=== PATIENT | male | born 1955 | race Caucasian/White ===

== ENCOUNTER → 2024-02-18 | Outpatient (CLI) | payer MEDICARE, SELFPAY ==
[2024-02-18 12:29] LABS: Absolute Lymphocyte Count 2.75 X10^3/uL (0.83-4.51); Absolute Neutrophil Count 4.2 X10^3/uL (2.0-7.7); Basophil# 0.11 X10^3/uL; Basophil% 1.3 % (0-1); Eosinophil# 0.69 X10^3/uL; Eosinophils% 8.2 % (0-5); Hematocrit 46.4 % (40-54); Hemoglobin 15.2 g/dL (13.0-16.5); Lymphocyte # 2.75 X10^3/ul (0.83-4.51); Lymphocyte % 32.6 % (19-41); Mean Corp Hgb Conc 32.8 g/dL (32-36); Mean Corpuscular Hgb 28.4 pg (27.0-32.0); Mean Corpuscular Volume 86.6 fL (80-94); Monocyte# 0.58 X10^3/uL; Monocyte% 6.9 % (0-10); NRBC Flagged by Analyzer 0 % (0-5); Neutrophil # 4.24 X10^3/uL (2.7-7.7); Neutrophil % 50.3 % (47-70); Platelet Count 175 K/mm3 (150-450); RBC Distribution Width CV 13.2 % (11.6-14.6); RBC Distribution Width SD 41.3 fl (35.1-43.9); Red Blood Count 5.36 M/mm3 (4.6-6.2); White Blood Count 8.4 K/mm3 (4.4-11.0)
[2024-02-18 13:30] LABS: AST(SGOT) 39 U/L (15-37); Alanine Aminotransfer ALT/SGPT 49 U/L (16-61); Albumin, Serum 3.5 g/dL (3.2-5.0); Alkaline Phosphatase 81 U/L (45-117); Anion Gap 7 (5-15); BUN 13 mg/dL (7-18); BUN/Creat Ratio 12.7 RATIO (10-20); Calcium,Total 8.9 mg/dL (8.5-10.1); Chloride 105 mmol/L (98-107); Cholesterol 93 mg/dL (200); Creatinine, Serum 1.02 mg/dL (0.70-1.30); EST Glomerular Filtration Rate 78 mL/min (>60); Est Glom Filt Rate - Afr Amer 94 mL/min (>60); Globulin 3.6 g/dL (2.2-4.2); Glucose 325 mg/dL (74-106); High Density Lipoprotein 27 mg/dL; PSA,Total - Annual Screen 0.62 ng/mL (0.00-4.00); Potassium 4.4 mmol/L (3.5-5.1); Protein, Total 7.1 g/dL (6.4-8.2); Sodium Level 134 mmol/L (136-145); Triglycerides 275 mg/dL; Very Low Density Lipoprotein 55 mg/dL (5-40)
== END | disposition home or self-care (01) ==
LOC: MFPLAB 10:27
PROVIDERS: PCP Family Medicine; Visit Provider Family Medicine
DX: I10 Essential (primary) hypertension (principal); E78.5 Hyperlipidemia, unspecified; Z12.5 Encounter for screening for malignant neoplasm of prostate
CPT/HCPCS: 36415; 80053; 80061; 84153; 84443; 85025; G0103

== ENCOUNTER 2024-03-30 15:59 | Outpatient (RCR) | payer SELFPAY | END 2024-04-25 23:59 | LOC: NS 15:59 | PROVIDERS: PCP Family Medicine | DX: Z71.3 Dietary counseling and surveillance (principal) ==

== ENCOUNTER → 2024-05-12 | Outpatient (CLI) | payer MEDICARE, SELFPAY ==
--- NOTE | 2024-05-12 12:49 | ECHOCS_ITS ---
Reason For Study: CAD/ASHD Procedure This was a 2D Doppler, Color Flow transthoracic echocardiogram. The study was technically difficult. Contrast injection was performed. Exam performed in department. Left Ventricle Normal LV size. Moderate concentric left ventricular hypertrophy. Left ventricular systolic function is normal. The left ventricular ejection fraction is 65 %. Stage 1 diastolic dysfunction. No regional wall motion abnormalities noted. Right Ventricle Normal RV size. Normal systolic function. Atria Normal left atrium. Normal right atrium. Mitral Valve Normal mitral valve. Tricuspid Valve Normal tricuspid valve. Aortic Valve Trisinus/trileaflet aortic valve. Mild focal aortic valve calcification. Pulmonic Valve Normal pulmonic valve. Great Vessels Mildly dilated aortic root. The pulmonary artery is normal size. Inferior vena cava collapse with respiration. Pericardium/Pleural No pericardial effusion. Medication 22 gauge I.V. with prn adaptor inserted into right arm. Diluted definity 3ml given slow IV push to enhance endocardial definition. MMode/2D Measurements & Calculations LVIDd: 3.7 cm IVSd: 1.6 cm LVOT diam: 2.0 cm LVIDs: 2.5 cm LVPWd: 1.4 cm RVDd: 3.6 cm FS: 31.0 % LVOT area: 3.0 cm2 Ao root diam: 4.1 cm asc Aorta Diam: 4.1 cm LAV(MOD-bp): 40.8 ml LAV(MOD-bp) Indexed: 17.9 ml/m2 LAV(MOD-sp2): 48.0 ml LAV(MOD-sp4): 30.5 ml SV(MOD-sp4): 67.7 ml SV(sp4-el): 71.1 ml LVAd ap4: 33.1 cm2 LVLd ap4: 8.7 cm SI(MOD-sp4): 29.7 ml/m2 EDV(MOD-sp4): 101.8 ml EDV(sp4-el): 106.2 ml LVAs ap4: 16.6 cm2 LVLs ap4: 6.6 cm ESV(MOD-sp4): 34.2 ml ESV(sp4-el): 35.1 ml EF(MOD-sp4): 66.5 % EF(sp4-el): 67.0 % Ao sinus diam: 3.[address] Junction: 3.0 cm LA A4 area: 14.6 cm2 LA dimension(2D): 3.6 cm TAPSE: 1.9 cm RA A4 area: 11.0 cm2 Time Measurements MV dec time: 0.31 sec Doppler Measurements & Calculations MV E max holger: 76.8 cm/sec Lat Peak E' Holger: 8.5 cm/sec Med Peak E' Holger: 6.2 cm/sec MV A max holger: 127.2 cm/sec E/E' lat: 9.0 E/E' med: 12.4 MV E/A: 0.60 MV V2 max: 129.2 cm/sec MV P1/2t max hogler: 84.0 cm/sec Ao V2 max: 232.4 cm/sec MV max P.7 mmHg MV P1/2t: 79.8 msec Ao max P.7 mmHg MV V2 mean: 78.3 cm/sec MV dec slope: 308.2 cm/sec2 Ao V2 mean: 151.9 cm/sec MV mean P.8 mmHg Ao mean P.9 mmHg MV V2 VTI: 23.3 cm MVA(P1/2t): 2.8 cm2 Ao V2 VTI: 41.4 cm MVA(VTI): 2.1 cm2 AV (velocity ratio): 0.39 KEY(I,D): 1.2 cm2 KEY(V,D): 1.2 cm2 LV V1 max: 91.3 cm/sec SV(LVOT): 48.9 ml PA V2 max: 98.5 cm/sec LV V1 max P.3 mmHg PA V2 mean: 69.4 cm/sec LV V1 mean P.8 mmHg LV V1 mean: 63.3 cm/sec LV V1 VTI: 16.3 cm ECHO/Echo Complete W/ Contrast Interpretation Summary Normal LV size. Moderate concentric left ventricular hypertrophy. Left ventricular systolic function is normal. The left ventricular ejection fraction is 65 %. Stage 1 diastolic dysfunction. Contrast injection was performed. Ordering Physician: Walt Costa Referring Physician: Walt Costa Performed By: Brodwolf, Matthias, RCS
== END | disposition home or self-care (01) ==
PROVIDERS: PCP Family Medicine; Referring Provider Internal Medicine Cardiovascular Disease; Visit Provider Internal Medicine Cardiovascular Disease
DX: I48.0 Paroxysmal atrial fibrillation (principal); I25.10 Atherosclerotic heart disease of native coronary artery without angina pectoris
CPT/HCPCS: 93306; Q9957; A4216; C8929

== ENCOUNTER 2024-06-19 05:29 | Day surgery (SDC) | payer MEDICARE, SELFPAY ==
--- NOTE | 2024-06-16 21:24 | PAT.ANESEVAL ---
Pre-Assessment Diagnosis/Proposed Procedure Planned Operative Procedure(s): COLONOSCOPY Anesthesia History Anesthesia History - bulk pallet builder: Anesthesia History - bulk pallet builder Hx Hospitalization No 06/16/24 10:06 Any Problems With Anesthesia Yes: PONV 06/16/24 10:06 Cholinesterase deficiency No 06/16/24 10:06 You/Your Family Experience No 06/16/24 10:06 fever (hyperthermia) with Relationship Recent Exposure to Contagious Disease Does patient have nerve No 06/16/24 10:06 stimulator Patient instructed to have device shut off --Does patient have Pacemaker or ICD? When Was Last Pacemaker Check QUESTION #4 FULL TEXT: You/Your Family Experience fever (hyperthermia) with Anesthesia Last Oral Intake Last Oral intake: Last Oral Intake NPO since Meds taken in AM with sips of water? Meds patient instructed to take am of surgery PONV PONV - bulk pallet builder: PONV - bulk pallet builder Female No 06/16/24 10:06 HX of Motion Sickness No 06/16/24 10:06 HX of N/V After Surgery Yes 06/16/24 10:06 Non-Smoker Yes 06/16/24 10:06 Duration of Surgery greater No 06/16/24 10:06 than 60 minutes Number of Risk Factors 2 06/16/24 10:06 PONV Score Moderate Risk 06/16/24 10:06 Height & Weight Height & Weight: Anesthesia: Height & Weight Height 5 ft 10 in 05/14/24 11:19 Respiratory Assessment Respiratory Assessment - bulk pallet builder: Respiratory Tract Infection Hx - bulk pallet builder Hx Respiratory Tract Infection No 06/16/24 10:06 STOP Sleep Apnea STOP Sleep Apnea - bulk pallet builder: STOP Sleep Apnea - bulk pallet builder Hx Hypertension Yes 06/16/24 10:06 Hx Sleep Apnea No 06/16/24 10:06 CPAP BIPAP Do you snore loudly (louder No 06/16/24 10:06 than talking or can be heard Do you often feel tired/ No 06/16/24 10:06 fatigued/ sleepy during daytime? Has anyone observed you stop No 06/16/24 10:06 breathing during sleep? STOP Results Negative 06/16/24 10:06 QUESTION #5 FULL TEXT : Do you snore loudly (louder than talking or can be heard through closed doors)? 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 Specify any problems Hx of Preganancy in last 3 N/A 06/16/24 10:06 Months Nurse Filling Out Transfusion [email or web address] 06/16/24 10:06 & Questions: Date: 06/16/24 06/16/24 10:06 Time: 10:08 06/16/24 10:06 Patient unable to answer at this time (ie. confused, unrespo /Reproduction History /Reproductive History - bulk pallet builder: /Reproductive Hx- bulk pallet builder Hx Now Gestational Age (in weeks): EDC: Hx Hx Para Hx Section SAB PFSH Medical History Retinal detachment Paroxysmal atrial fibrillation Hypertension Type 2 diabetes mellitus Gout Ulcerative colitis GERD (gastroesophageal reflux disease) Hyperlipidemia Coronary artery disease Personal history of colonic polyps History of colon cancer Home Medications ?Medication ?Instructions ?Recorded ?Last Taken ?Type allopurinol 100 mg tablet 100 mg PO QDAY 03/16/24 Unknown History aspirin 81 mg tablet,delayed 81 mg PO QDAY 03/16/24 06/13/24 History release (Adult Low Dose Aspirin) dapagliflozin propanediol 5 mg 5 mg PO QDAY 03/16/24 06/13/24 History tablet (Farxiga) famotidine 20 mg tablet 20 mg PO QDAY 03/16/24 Unknown History lactobacillus combination no.9 4 4,000 mmu cells PO QDAY 03/16/24 Unknown History billion cell capsule (Adult 50 Plus Probiotic) losartan 100 mg tablet 100 mg PO QDAY 03/16/24 Unknown History meloxicam 15 mg tablet 15 mg PO QDAY 03/16/24 Unknown History mesalamine 1.2 gram tablet,delayed 1.2 g PO QDAY 03/16/24 Unknown History release metformin 1,000 mg tablet 1,000 mg PO QDAY 03/16/24 Unknown History metoprolol tartrate 50 mg tablet 50 mg PO QDAY 03/16/24 Unknown History multivitamin 1 tab PO QAM 03/16/24 Unknown History rosuvastatin 20 mg tablet 20 mg PO QDAY 03/16/24 Unknown History semaglutide 0.25 mg or 0.5 mg (2 0.25 mg subcut QWEEK 03/16/24 06/06/24 History mg/3 mL) subcutaneous pen injector (Ozempic) Allergy/AdvReac Type Severity Reaction Status Date / Time adhesive tape Allergy Rash Verified 06/16/24 10:04 morphine Allergy HALLUCINATI Verified 06/16/24 10:04 ONS shellfish derived Allergy Swelling Verified 06/16/24 10:04 Family History Mother Breast cancer Father Alzheimer's disease Surgical History History of eye surgery History of coronary artery stent placement History of cardiac catheterization History of carpal tunnel surgery History of ventral hernia repair History of fusion of cervical spine History of partial colectomy History of total right knee replacement Hx of appendectomy Hx of colonoscopy Social History household members: spouse current occupational status: retired Smoking Status: Never smoker alcohol intake: current alcohol intake frequency: holidays/special occasions only substance use type: does not use caffeine: Yes Audit: Pertinent Findings Pertinent Findings EKG Perinent findings: April 15, 2024. Sinus rhythm Echo (EF%) pertinent findings: May 12, 2024. Ejection fraction 65%. No aortic stenosis noted. Heart catheterization pertinent findings: February 2023. Drug-eluting stent to the right coronary artery. Consult pertinent findings: April 15, 2024. Dr. Costa. 1. Paroxysmal atrial fibrillation. Patient has a history of atrial fibrillation. Current EKG is normal sinus rhythm. No longer on oral anticoagulants. An event monitor performed August 22, 2021 showed no evidence of atrial fibrillation. 2. Ixzzyrcekhkv-zixl-skbbiteotm. Continue same meds. 3. Coronary artery disease patient denies recurrence of dyspnea on exertion after his drug-eluting stent placement. 4. Aortic valve stenosis. Patient's murmur is consistent with mild to moderate aortic stenosis. Repeat echo to assess. See above. Recommendation Anesthesia Recommendation Anesthesia recommendation: OPTIMIZED for anesthesia
[2024-06-19] VITALS (17 sets, daily range): BP systolic 53–124; BP diastolic 39–90; PULSE 76–114; RESP 16–18; TEMP 36.4–36.6; O2SAT 89–102; BMI 33.5
--- NOTE | 2024-06-19 | COLBX_PTH ---
PATIENT: MARIA DE JESUS AMBROCIO LOC: EN U#:[id number] AGE/SX: 69/M ROOM: RE06/19/[address]: Dr. Nimesh Zurita DO : 1955 BED: DIS: 06/19/2024 SPEC #: [id number] RECD: 06/19/24 13:47 STATUS: CHRISTOPHER REWhitney #: [id number] TIM: 06/19/24 00:[address]: Nimesh Zurita DEPT: SURGICAL PATHOLOGY RECD BY: Matt Foote ENTERED: 06/19/24 13:48 SP TYPE: COLON BX OTHR DR: Alexia Paez MD Tissues: A - COLON BIOPSY B - COLON BIOPSY C - Sigmoid colon biopsy D - Rectum, NOS Procedures: Surgery Specimen Level IV HEADER OPERATION: Colonoscopy PRE-OP DIAGNOSIS: Ulcerative colitis, history of colon cancer TISSUE SUBMITTED: A- Right side of colon biopsy, B- Left side colon biopsy, C- Sigmoid colon biopsy,D- Rectal biopsy MICROSCOPIC DIAGNOSIS A. Right side of colon, biopsy: Fragments of colonic mucosa with minimal glandular distortion. Negative for active inflammation. B. Left side of colon, biopsy: Fragments of colonic mucosa with minimal glandular distortion. Negative for active inflammation. C. Sigmoid colon, biopsy: Fragments of colonic mucosa with minimal glandular distortion. Negative for active inflammation. D. Rectal biopsy: Fragments of colonic mucosa with minimal glandular distortion. Negative for active inflammation. 06/22/2024 COMMENT Correlation with clinical, endoscopic findings and appropriate follow up are necessary. MICROSCOPIC DESCRIPTION Slides are reviewed. GROSS DESCRIPTION A. Received in fixative is one container labeled with the patient's name and designated Right side of colon biopsy. The specimen consists of multiple irregular fragments of light peña soft tissue that in aggregate measure 1.8 x 0.2 x 0.1 cm. The specimen is totally submitted in one cassette. B. Received in fixative is one container labeled with the patient's name and designated Left side colon biopsy. The specimen consists of multiple irregular fragments of light peña soft tissue that in aggregate measure 1.5 x 0.7 x 0.1 cm. The specimen is totally submitted in one cassette. C. Received in fixative is one container labeled with the patient's name and designated Sigmoid colon biopsy. The specimen consists of multiple irregular fragments of light peña soft tissue that in aggregate measure 1.4 x 0.3 x 0.1 cm. The specimen is totally submitted in one cassette. D. Received in fixative is one container labeled with the patient's name and designated Rectal biopsy. The specimen consists of multiple irregular fragments of light peña soft tissue that in aggregate measure 1 x 0.5 x 0.1 cm. The specimen is totally submitted in one cassette. 06/19/2024 TC:5 CPT:00996y1
[2024-06-19 06:29] LABS: Bedside Glucose 165 mg/dL (74-106)
--- NOTE | 2024-06-19 06:33 | PCM.PRE.AN2 ---
ASA Classification* ASA Classification ASA Classification: 3 Assessment & Plan Anesthesia* Anesthesia Assessment Anesthesia Assessment: Discussed sedation and/or anesthesia options, risks, benefits, and alternatives with patient/parents/legal guardian/POA. Questions invited. The patient/parents/legal guardian/POA seems to understand and agrees to proceed with anesthesia plan. Reviewed the physical assessment, medical history, allergy history and patient home medications list prior to surgery/procedure/anesthetic and documented any changes. Performed airway and anesthesia risk assessments. Anesthesia Type Anesthesia Type: MAC History Source History Obtained from:: Patient and Chart Anesthesia Focused Assessment* Temperature: 97.8 F Pulse Rate: 114 Blood Pressure: 124/90 Respiratory Rate: 18 Pulse Ox: 92 Oxygen Delivery Method: Room Air Airway Assessment Mouth opens: >3 cm Mallampati Score: IV Teeth Condition: Caps/Crowns (Patient has a couple crowns. They are tight.) Neck Range of motion (ROM): Limited ROM (Slight decrease in extension secondary to anterior cervical fusion.) Focused Labs Anesthesia Preop lab: CBC WBC 8.4 K/mm3 (4.4-11.0) 02/18/24 10:28 RBC 5.36 M/mm3 (4.6-6.2) 02/18/24 10:28 Hgb 15.2 g/dL (13.0-16.5) 02/18/24 10:28 Hct 46.4 % (40-54) 02/18/24 10:28 Plt Count 175 K/mm3 (150-450) 02/18/24 10:28 CHEMISTRY Potassium 4.4 mmol/L (3.5-5.1) 02/18/24 10:28 Sodium 134 mmol/L (136-145) L 02/18/24 10:28 BUN 13 mg/dL (7-18) 02/18/24 10:28 Creatinine 1.02 mg/dL (0.70-1.30) 02/18/24 10:28 Glucose 325 mg/dL (74-106) H 02/18/24 10:28 POC Glucose 165 mg/dL (74-106) H 06/19/24 06:08 TSH 1.340 uIU/mL (0.358-3.740) 02/18/24 10:28 COAG Pre-Assessment Diagnosis/Proposed Procedure Planned Operative Procedure(s): COLONOSCOPY Anesthesia History Anesthesia History - administrative court justice: Anesthesia History - administrative court justice Hx Hospitalization No 06/16/24 10:06 Any Problems With Anesthesia Yes: PONV narrow airway?patient has had to be fiberoptically intubated in the past. 06/16/24 10:06 Cholinesterase deficiency No 06/16/24 10:06 You/Your Family Experience No 06/16/24 10:06 fever (hyperthermia) with Relationship Recent Exposure to Contagious No 06/19/24 06:07 Disease Does patient have nerve No 06/16/24 10:06 stimulator Patient instructed to have device shut off --Does patient have Pacemaker No 06/19/24 06:07 or ICD? When Was Last Pacemaker Check QUESTION #4 FULL TEXT: You/Your Family Experience fever (hyperthermia) with Anesthesia Last Oral Intake Last Oral intake: Last Oral Intake NPO since 04:00 06/19/24 06:07 Meds taken in AM with sips of Yes 06/19/24 06:07 water? Meds patient instructed to see medlist 06/19/24 06:07 take am of surgery Any additional information?: Yes NPO since: 04:00 (Patient finished prep at 4 AM.) Meds taken in AM with sips of water?: Yes PONV PONV - administrative court justice: PONV - administrative court justice Female No 06/16/24 10:06 HX of Motion Sickness No 06/16/24 10:06 HX of N/V After Surgery Yes 06/16/24 10:06 Non-Smoker Yes 06/16/24 10:06 Duration of Surgery greater No 06/16/24 10:06 than 60 minutes Number of Risk Factors 2 06/16/24 10:06 PONV Score Moderate Risk 06/16/24 10:06 Height & Weight Height & Weight: Anesthesia: Height & Weight Height 5 ft 10 in 06/19/24 06:07 Weight: 106 kg 06/19/24 06:07 Body Mass Index (BMI) 33.5 06/19/24 06:07 Respiratory Assessment Respiratory Assessment - administrative court justice: Respiratory Tract Infection Hx - administrative court justice Hx Respiratory Tract Infection No 06/16/24 10:06 STOP Sleep Apnea STOP Sleep Apnea - administrative court justice: STOP Sleep Apnea - administrative court justice Hx Hypertension Yes 06/16/24 10:06 Hx Sleep Apnea No 06/16/24 10:06 CPAP BIPAP Do you snore loudly (louder No 06/16/24 10:06 than talking or can be heard Do you often feel tired/ No 06/16/24 10:06 fatigued/ sleepy during daytime? Has anyone observed you stop No 06/16/24 10:06 breathing during sleep? STOP Results Negative 06/16/24 10:06 QUESTION #5 FULL TEXT : Do you snore loudly (louder than talking or can be heard through closed doors)? 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 Specify any problems Hx of Preganancy in last 3 N/A 06/16/24 10:06 Months Nurse Filling Out Transfusion [email or web address] 06/16/24 10:06 & Questions: Date: 06/16/24 06/16/24 10:06 Time: 10:08 06/16/24 10:06 Patient unable to answer at this time (ie. confused, unrespo /Reproduction History /Reproductive History - administrative court justice: /Reproductive Hx- administrative court justice Hx Now Gestational Age (in weeks): EDC: Hx Hx Para Hx Section [facility] Medical History Retinal detachment Paroxysmal atrial fibrillation Hypertension Type 2 diabetes mellitus Gout Ulcerative colitis GERD (gastroesophageal reflux disease) Hyperlipidemia Coronary artery disease Personal history of colonic polyps History of colon cancer Home Medications ?Medication ?Instructions ?Recorded ?Last Taken ?Type allopurinol 100 mg tablet 100 mg PO QDAY 03/16/24 Unknown History aspirin 81 mg tablet,delayed 81 mg PO QDAY 03/16/24 06/15/24 History release (Adult Low Dose Aspirin) dapagliflozin propanediol 5 mg 5 mg PO QDAY 03/16/24 06/15/24 History tablet (Farxiga) famotidine 20 mg tablet 20 mg PO QDAY 03/16/24 06/19/24 History lactobacillus combination no.9 4 4,000 mmu cells PO QDAY 03/16/24 Unknown History billion cell capsule (Adult 50 Plus Probiotic) losartan 100 mg tablet 100 mg PO QDAY 03/16/24 06/19/24 History meloxicam 15 mg tablet 15 mg PO QDAY 03/16/24 Unknown History mesalamine 1.2 gram tablet,delayed 1.2 g PO QDAY 03/16/24 Unknown History release metformin 1,000 mg tablet 1,000 mg PO QDAY 03/16/24 06/17/24 History metoprolol tartrate 50 mg tablet 50 mg PO QDAY 03/16/24 06/19/24 History multivitamin 1 tab PO QAM 03/16/24 Unknown History rosuvastatin 20 mg tablet 20 mg PO QDAY 03/16/24 Unknown History semaglutide 0.25 mg or 0.5 mg (2 0.25 mg subcut QWEEK 03/16/24 06/09/24 History mg/3 mL) subcutaneous pen injector (Ozempic) Allergy/AdvReac Type Severity Reaction Status Date / Time adhesive tape Allergy Rash Verified 06/19/24 06:05 morphine Allergy HALLUCINATI Verified 06/19/24 06:05 ONS shellfish derived Allergy Swelling Verified 06/19/24 06:05 Family History Mother Breast cancer Father Alzheimer's disease Surgical History History of eye surgery History of coronary artery stent placement History of cardiac catheterization History of carpal tunnel surgery History of ventral hernia repair History of fusion of cervical spine History of partial colectomy History of total right knee replacement Hx of appendectomy Hx of colonoscopy Social History household members: spouse current occupational status: retired Smoking Status: Never smoker alcohol intake: current alcohol intake frequency: holidays/special occasions only substance use type: does not use caffeine: Yes Review of Systems (Anesthesia) ROS Narrative System reviewed and no additional complaints, except as documented.
--- NOTE | 2024-06-19 07:09 | PCM.HP.STD ---
HPI - General General Date of Admission: 06/19/24 Date of Service: 06/19/24 Chief Complaint: h/o colon cancer HPI Narrative MARIA DE JESUS AMBROCIO, is a 69 M who presents for surveillance colonoscopy. Pt has a PMHx of colon cancer, UC, DM, and CAD. He recently moved to this area from [place] and wanted to establish his care. He was diagnosed with UC about 20 years ago after having issues w/ diarrhea. He has been treated with mesalamine every since and feels it is well controlled. He also had colon caner in 2005. He is unsure what kind or where in his bowel but he did undergo resection of his colon. Following this he had complications and ended up with a temporary colostomy. He is having no GI symptoms at this time but it is time for his screening colonoscopy. He denies abdominal pain, n/v, heartburn, constipation , diarrhea or blood in his stool. [facility] Medical History Retinal detachment Paroxysmal atrial fibrillation Hypertension Type 2 diabetes mellitus Gout Ulcerative colitis GERD (gastroesophageal reflux disease) Hyperlipidemia Coronary artery disease Personal history of colonic polyps History of colon cancer Home Medications ?Medication ?Instructions ?Recorded ?Last Taken ?Type allopurinol 100 mg tablet 100 mg PO QDAY 03/16/24 Unknown History aspirin 81 mg tablet,delayed 81 mg PO QDAY 03/16/24 06/15/24 History release (Adult Low Dose Aspirin) dapagliflozin propanediol 5 mg 5 mg PO QDAY 03/16/24 06/15/24 History tablet (Farxiga) famotidine 20 mg tablet 20 mg PO QDAY 03/16/24 06/19/24 History lactobacillus combination no.9 4 4,000 mmu cells PO QDAY 03/16/24 Unknown History billion cell capsule (Adult 50 Plus Probiotic) losartan 100 mg tablet 100 mg PO QDAY 03/16/24 06/19/24 History meloxicam 15 mg tablet 15 mg PO QDAY 03/16/24 Unknown History mesalamine 1.2 gram tablet,delayed 1.2 g PO QDAY 03/16/24 Unknown History release metformin 1,000 mg tablet 1,000 mg PO QDAY 03/16/24 06/17/24 History metoprolol tartrate 50 mg tablet 50 mg PO QDAY 03/16/24 06/19/24 History multivitamin 1 tab PO QAM 03/16/24 Unknown History rosuvastatin 20 mg tablet 20 mg PO QDAY 03/16/24 Unknown History semaglutide 0.25 mg or 0.5 mg (2 0.25 mg subcut QWEEK 03/16/24 06/09/24 History mg/3 mL) subcutaneous pen injector (Ozempic) Allergy/AdvReac Type Severity Reaction Status Date / Time adhesive tape Allergy Rash Verified 06/19/24 06:05 morphine Allergy HALLUCINATI Verified 06/19/24 06:05 ONS shellfish derived Allergy Swelling Verified 06/19/24 06:05 Family History Mother Breast cancer Father Alzheimer's disease Surgical History History of eye surgery History of coronary artery stent placement History of cardiac catheterization History of carpal tunnel surgery History of ventral hernia repair History of fusion of cervical spine History of partial colectomy History of total right knee replacement Hx of appendectomy Hx of colonoscopy Social History household members: spouse current occupational status: retired Smoking Status: Never smoker alcohol intake: current alcohol intake frequency: holidays/special occasions only substance use type: does not use caffeine: Yes ROS Constitutional Constitutional: Denies fatigue, fever(s), poor appetite, weight gain or weight loss Gastrointestinal Gastrointestinal: Denies belching, bloating, change in bowel habits, change in stool character, chewing difficulty, coffee ground emesis, constipation, cramping, diarrhea, dyspepsia, dysphagia, early satiety, excessive flatus, fecal incontinence, heartburn, hematemesis, hematochezia, hemorrhoids, loose stools, melena, nausea, odynophagia, rectal bleeding, tenesmus, vomiting or weight changes Vital Signs Vital Signs Vital Signs: 06/19/24 06:07 06/19/24 06:43 Temperature 97.8 F 97.8 F Temperature Source Temporal Pulse Rate 114 H 114 H Respiratory Rate 18 18 Blood Pressure 124/90 H 124/90 H Blood Pressure Mean 101 Blood Pressure Source Monitor Blood Pressure Position Semi-Fowlers Blood Pressure Location Right Arm Pulse Ox 92 92 Oxygen Delivery Method Room Air Room Air Weight Weight: 233 lb 11.04 oz Body Mass Index (BMI) 33.5 Physical Exam Const alert, oriented x3, no apparent distress and healthy appearing General Appearance: cooperative GI normal to inspection, nondistended, normoactive bowel sounds, soft to palpation, non-tender and non-distended Percussion: normal to percussion Rectal Exam: deferred Results Lab / Micro Data Labs: Laboratory Results - last 24 hr 06/19/24 06:08: POC Glucose 165 H Assessment & Plan Assessment/Plan (1) History of colon cancer: PLAN: Assessment and Plan Assessment and Plan (1) Ulcerative colitis: Status: Acute Plan: This is a 68 yo male pt with PMHx of colon cancer and UC here today for establishment and for screening colonoscopy. Pt recently moved to [place] and needed to find a new GI. He had colon cancer in 2005 and is s/p partial colon resection. He is due for his screening colonoscopy. He will be scheduled for this. He has had UC for 20 years and is symptom free with mesalamine. He will continue mesalamine. He will f/u in 6 months. -Colonopscy -Continue mesalamine -f/u in 6 months (2) History of colon cancer: Status: Acute (2) Ulcerative colitis:
--- NOTE | 2024-06-19 07:35 | OP.COLON_ITS ---
Patient Name: Michael Garcia Procedure Date: 06/19/2024 7:19 AM Date of : 1955 Age: 69 Procedure: Colonoscopy Indications: Disease activity assessment of left-sided chronic ulcerative colitis Providers: Nimesh Zurita DO Referring MD: Alexia Paez Md Medicines: Monitored Anesthesia Care Patient Profile: This is a 69 year old male. Refer to note in patient chart for documentation of history and physical. Last Colonoscopy: more than 3 years ago. Complications: No immediate complications. Procedure: Pre-Anesthesia Assessment: - Prior to the procedure, a History and Physical was performed, and patient medications and allergies were reviewed. The patient is competent. The risks and benefits of the procedure and the sedation options and risks were discussed with the patient. All questions were answered and informed consent was obtained. Patient identification and proposed procedure were verified by the physician in the pre-procedure area. Mental Status Examination: alert and oriented. Airway Examination: normal oropharyngeal airway and neck mobility. Respiratory Examination: clear to auscultation. CV Examination: normal. Prophylactic Antibiotics: The patient does not require prophylactic antibiotics. Prior Anticoagulants: The patient has taken no anticoagulant or antiplatelet agents except for NSAID medication. ASA Grade Assessment: II - A patient with mild systemic disease. After reviewing the risks and benefits, the patient was deemed in satisfactory condition to undergo the procedure. The anesthesia plan was to use monitored anesthesia care (MAC). Immediately prior to administration of medications, the patient was re-assessed for adequacy to receive sedatives. The heart rate, respiratory rate, oxygen saturations, blood pressure, adequacy of pulmonary ventilation, and response to care were monitored throughout the procedure. The physical status of the patient was re-assessed after the procedure. After I obtained informed consent, the scope was passed under direct vision. Throughout the procedure, the patient's blood pressure, pulse, and oxygen saturations were monitored continuously. The Colonoscope was introduced through the anus and advanced to the cecum, identified by appendiceal orifice and ileocecal valve. The colonoscopy was performed without difficulty. The patient tolerated the procedure well. The quality of the bowel preparation was adequate. The ileocecal valve, appendiceal orifice, and rectum were photographed. Scope In: 7:21:48 AM Scope Withdrawal Time 0 hours 7 minutes 23 seconds Scope Out: 7:30:33 AM Total Procedure Duration Time 0 hours 8 minutes 45 seconds Findings: The perianal and digital rectal examinations were normal. There was evidence of a prior end-to-end colo-colonic anastomosis in the recto-sigmoid colon. This was patent and was characterized by healthy appearing mucosa. Inflammation was found in a continuous and circumferential pattern from the rectum to the sigmoid colon. This was graded as Dover Score 1 (mild, with erythema, decreased vascular pattern, mild friability), and when compared to the previous examination, the findings are in remission. Biopsies were taken with a cold forceps for histology. Verification of patient identification for the specimen was done. Estimated blood loss was minimal. The exam was otherwise without abnormality on direct and retroflexion views. Impression: - Patent end-to-end colo-colonic anastomosis, characterized by healthy appearing mucosa. - Mild (Dover Score 1) ulcerative colitis, in remission since the last examination. Biopsied. - The examination was otherwise normal on direct and retroflexion views. Recommendation: - Discharge patient to home. - Resume previous diet. - Continue present medications. - Await pathology results. - Repeat colonoscopy for surveillance based on pathology results. Procedure Code(s): --- Professional --- 41409, Colonoscopy, flexible; with biopsy, single or multiple CPT copyright 2021 [employer]. All rights reserved. The codes documented in this report are preliminary and upon manager merchandising review may be revised to meet current compliance requirements. Nimesh Zurita DO 06/19/2024 7:34:42 AM This report has been signed electronically. Number of Addenda: 0 Note Initiated On: 06/19/2024 7:19 AM
--- NOTE | 2024-06-19 07:35 | OP.CCLET_ITS ---
06/19/2024 Alexia Paez Md Re : Colonoscopy procedure for Michael Maguirer Philippe This procedure was performed on Wednesday, June 19, 2024. My impressions and recommendations are as follows: Impressions : - Patent end-to-end colo-colonic anastomosis, characterized by healthy appearing mucosa. - Mild (Dover Score 1) ulcerative colitis, in remission since the last examination. Biopsied. - The examination was otherwise normal on direct and retroflexion views. Recommendations : - Discharge patient to home. - Resume previous diet. - Continue present medications. - Await pathology results. - Repeat colonoscopy for surveillance based on pathology results. My findings are described in the full procedure note, which is enclosed. If I can be of further assistance, please feel free to contact me at . Sincerely, Nimesh Zurita, 06/19/2024 7:34:42 AM This report has been signed electronically.
--- NOTE | 2024-06-19 07:44 | PCM.POST.ANE ---
Anesthesia: Postop Eval I Current Vital Signs Temperature: 97.5 F Pulse Rate: 99 Blood Pressure: 53/39 Respiratory Rate: 16 Pulse Ox: 94 Oxygen Delivery Method: Room Air Assessment Airway patent: Yes Spontaneous unlabored respirations: Yes Mental status: Asleep nausea: No Vomiting: No Anesthesia Complication: Yes Anesthesia Complication Comment:: hypotension in PACU Fluid Hydration Crystalloid volume administer (ml): 40 Total IV fluid infused: 40 Progress Note Anesthesia document: Postop Eval 1 completed: Yes
--- NOTE | 2024-06-19 10:36 | PCM.POSTANE2 ---
Anesthesia Postop Eval I Sum Postop Eval Completion status Anesthesia document: Postop Eval 1 completed: Yes Anesthesia Postop Eval I Summary Anesthesia Postop Eval I Summary: Anesthesia Postop Eval I: Assessment Summary Airway patent Yes 06/19/24 07:45 [email or web address] Spontaneous unlabored Yes 06/19/24 07:45 [email or web address] respirations Mental status Asleep 06/19/24 07:45 [email or web address] nausea No 06/19/24 07:45 [email or web address] Vomiting No 06/19/24 07:45 [email or web address] Anesthesia Postop Eval I: Fluid Summary Crystalloid volume administer 40 06/19/24 07:45 [email or web address] (ml) Colloids volume administered ( ml) Blood Product volume administered (ml) Total IV fluid infused 40 06/19/24 07:45 [email or web address] Anesthesia Postop Eval I: Summary Notes Anesthesia Complication Yes 06/19/24 07:45 [email or web address] Anesthesia Complication hypotension in 06/19/24 07:45 [email or web address] Comment: PACU Post-operative progress note Anesthesia: Postop Eval II Evaluation Mental status: Awake Pain Level: 0 nausea: No Vomiting: No Complications Anesthesia Complication: No
== END 2024-06-19 09:33 | disposition home or self-care (01) ==
LOC: EN 05:30 → AC 05:31
PROVIDERS: PCP Family Medicine; Referring Provider Family Medicine; Visit Provider Internal Medicine Gastroenterology
PROC: 0DJD8ZZ Inspection of Lower Intestinal Tract, Via Natural or Artificial Opening Endoscopic (ICD-10-PCS; CPT 45378; principal; 2024-06-19 06:55)
DX: Z12.11 Encounter for screening for malignant neoplasm of colon (principal); K51.30 Ulcerative (chronic) rectosigmoiditis without complications; E11.9 Type 2 diabetes mellitus without complications; E78.5 Hyperlipidemia, unspecified; K21.9 Gastro-esophageal reflux disease without esophagitis; I10 Essential (primary) hypertension; I25.10 Atherosclerotic heart disease of native coronary artery without angina pectoris; Z98.0 Intestinal bypass and anastomosis status; Z90.49 Acquired absence of other specified parts of digestive tract; Z95.5 Presence of coronary angioplasty implant and graft; Z79.1 Long term (current) use of non-steroidal anti-inflammatories (NSAID); Z85.038 Personal history of other malignant neoplasm of large intestine; Z79.84 Long term (current) use of oral hypoglycemic drugs; Z79.85 Long-term (current) use of injectable non-insulin antidiabetic drugs; Z79.899 Other long term (current) drug therapy
CPT/HCPCS: 45380; 82962; 88305; A4216; J2405

== ENCOUNTER 2024-06-24 15:00 | Outpatient (RCR) | payer MEDICARE, SELFPAY ==
--- NOTE | 2024-05-29 13:08 | HP.PTEVAL_ITS ---
Patient's Visit Information Visit Information Visit Information: MARIA DE JESUS AMBROCIO is a 69 year old M referred to Physical Therapy by TOBIAS Corbett with a diagnosis of R shoulder and hip pain. Date of Evaluation: 05/29/24 Physical Therapist: Ruben Bryan, PT, ATC Visit Plan Frequency: 1x/Week Duration: 2-3 weeks Plan: R shoulder- rotator cuff strengthening and scap stab ex's R hip- IT band and piriformis stretching, core strengthening Subjective Subjective: Pt reports his R shoulder and hip became sore approximately 1 1/2 months ago. Pt notes his pain had an insidious onset in nature. Pt reports he was placed on a steroid a while ago which has really helped. Pt notes his pain is now minimal compared to previously. Pt is R hand dominant. Pt reports he ruptured his R biceps tendon one year ago which was never repaired. Pt reports his R hip is sore on the lateral aspect superior to the greater trochanter of the R hip. Pt denies any prior Hx of trauma to the R hip. 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 Pt denies any tingling or numbness with R UE/LE extremities. Pt denies sleep difficulty at this time although notes he takes advil for pain. Pt reports significant pain with overhead reaching prior to receiving his steroids. Pt has not had any diagnostic tests at this time. R shoulder pain ranges from 1/10 pain while at rest to 10/10 pain at worst. R hip pain is 1/10 while sitting here at rest, 10/10 at worst. Pt reports his R hip would really hurt anytime he had to lift his R LE. Pain R shoulder: Pain Intensity (Out of 10): 1 Pain Intensity Range: 10 R hip: Pain Intensity (Out of 10): 1 Pain Intensity Range: 10 Objective Objective: Neuro: B LE/UE sensation is WNL to light touch. B UE/LE reflexes are 1/3 throughout Palpation: Pt has no soreness today with palpation. No obvious deformities noted at this time. ROM: B shoulders and hips are WNL when compared bilaterally MMT: L shoulder flex= 19, abd= 28, ER= 23, IR= 27 #F; R shoulder flex= 9, abd= 28, ER= 12, IR= 27 SPecial tests: No pos tests this date Balance/Special Test Scores Quick DASH Score: 22.7250 Goals Goal 1:: I with HEP 2-3 visits Goal Time Frame: 2 Weeks Rehabilitation Potential Physical Therapy Diagnosis: Pt has R shoulder weakness and pain secondary to impingement syndrome. Pt has R hip pain secondary to IT band syndrome. Rehabilitation Potential: Good Anticipated Interventions Patient/Client Instruction: Educate patient on: Condition and Plan of Care For the Purpose of:: To improve self management Therapeutic Exercise to Include: Strength training, Endurance training, Active ROM, Dynamic Lumbar Stabilization and Scapular Strength/Stabilization For the Purpose of:: To decrease pain and To improve muscle performance and motor function Text: Thank you for the opportunity to evaluate your patient. For Medicare and Medicare HMO plans, please review the plan of care and approve it. It will need to be FAXED BACK to us at [phone] for Medicare purposes. For Medicare only, by signing this I certify the plan of care. Please let me know if there are questions or concerns regarding this plan of care. Physician Signature: Date:
--- NOTE | 2024-07-15 12:28 | HP.PT.NRP ---
Patient Information Patient Information: MARIA DE JESUS AMBROCIO was seen in my office for initial evaluation on 05/29/24. The following Plan of Care was established for this patient: POC Established Initial Frequency: 1x/Week Initial Duration: 2-3 weeks Anticipated Interventions Patient/Client Instruction: Educate patient on: Condition and Plan of Care For the Purpose of:: To improve self management Therapeutic Exercise to Include: Strength training, Endurance training, Active ROM, Dynamic Lumbar Stabilization and Scapular Strength/Stabilization For the Purpose of:: To decrease pain and To improve muscle performance and motor function Last Seen Last Seen: This patient was last seen in our office . Pertinent comments regarding their Physical therapy will appear below: Pt phoned the clinic today to report he is feeling good and wants to cancel his last appointment. Discharge at this time. At this point I will be discontinuing this patient from physical therapy. I would be happy to see this patient again in the future if found appropriate by the physician. Thank you! Ruben Bryan, PT, ATC Balance/Gait/Functional tests Balance/Special Test Scores Quick DASH Score: [phone]
== END 2024-06-24 19:00 | disposition home or self-care (01) ==
LOC: PT 15:00
PROVIDERS: PCP Family Medicine; Referring Provider Physician Assistant Surgical; Visit Provider Physician Assistant Surgical
DX: M76.891 Other specified enthesopathies of right lower limb, excluding foot (principal); M77.8 Other enthesopathies, not elsewhere classified
CPT/HCPCS: 97110; 97161

== ENCOUNTER → 2024-08-19 | Outpatient (CLI) | payer MEDICARE, SELFPAY ==
[2024-08-19 13:22] LABS: Hemoglobin A1c 6.8 % (<=5.6)
== END | disposition home or self-care (01) ==
LOC: MFPLAB 10:27
PROVIDERS: PCP Family Medicine; Referring Provider Family Medicine; Visit Provider Family Medicine
DX: E11.9 Type 2 diabetes mellitus without complications (principal)
CPT/HCPCS: 36415; 83036

== ENCOUNTER → 2025-04-19 | Outpatient (CLI) | payer MEDICARE, SELFPAY ==
[2025-04-19 12:11] LABS: Hematocrit 48.5 % (40-54); Hemoglobin 16.1 g/dL (13.0-16.5); Mean Corp Hgb Conc 33.2 g/dL (32-36); Mean Corpuscular Volume 83.8 fL (80-94); Mean Platelet Vol. 10.5 fl (6.2-12.0); Platelet Count 199 K/mm3 (150-450); RBC Distribution Width CV 13.6 % (11.6-14.6); RBC Distribution Width SD 41.9 fl (35.1-43.9); Red Blood Count 5.79 M/mm3 (4.6-6.2); White Blood Count 10.9 K/mm3 (4.4-11.0)
[2025-04-19 12:48] LABS: Creatinine, Urine (random) 126.00 mg/dL (39.00-259.00); Microalbumin,Random Urine < 12.0 mg/L (<20 mg/L)
[2025-04-19 16:01] LABS: AST(SGOT) 28 U/L (<=37); Alanine Aminotransfer ALT/SGPT 26 U/L (<=46); Albumin, Serum 4.1 g/dL (3.4-4.8); Alkaline Phosphatase 82 U/L (40-129); Anion Gap 12 (5-15); BUN 20 mg/dL (4-19); BUN/Creat Ratio 20.2 RATIO (10-20); Calcium,Total 9.2 mg/dL (7.6-11.0); Carbon Dioxide 21.1 mmol/L (21.0-32.0); Chloride 103 mmol/L (98-108); Cholesterol 67 mg/dL (<=200); Globulin 3.1 g/dL (2.2-4.2); Glucose 149 mg/dL (70-99); Low Density Lipoprotein Calc. 24 mg/dL; PSA,Total - Annual Screen 0.97 ng/mL (0.02-4.00); Potassium 4.3 mmol/L (3.3-5.1); Triglycerides 97 mg/dL; Very Low Density Lipoprotein 19 mg/dL (5-40); Vitamin D,25 Hydroxy 29.8 ng/mL (30-100); cholesterol:hdl ratio screen 2.83
== END | disposition home or self-care (01) ==
LOC: MFPLAB 10:57
PROVIDERS: PCP Family Medicine; Visit Provider Family Medicine
DX: I10 Essential (primary) hypertension (principal); E11.65 Type 2 diabetes mellitus with hyperglycemia; E78.5 Hyperlipidemia, unspecified; Z12.5 Encounter for screening for malignant neoplasm of prostate
CPT/HCPCS: 36415; 80053; 80061; 82043; 82306; 82570; 83036; 84153; 85027; G0103